=== PATIENT | male | born 1960 | race Two or more races ===

== ENCOUNTER 2017-04-09 16:27 | Emergency (ER) | payer BC, OTHER ==
[~2017-04-09] VITALS: Ht 177.8 cm; Wt 95.2 kg
[2017-04-09 16:28] VITALS: BP 135/96
[2017-04-09] MEDS ORDERED: LISI2.5T PO (16:45)
[2017-04-09] MEDS ORDERED: METF500T4 PO (16:45)
[2017-04-09] MEDS ORDERED: ATOR10TA9 PO (16:46)
[2017-04-09] MEDS ORDERED: OMEG1CAP23 PO (16:47)
== END 2017-04-09 19:40 | disposition home or self-care (01) ==
LOC: ED 17:00
DX: S92.351A Displaced fracture of fifth metatarsal bone, right foot, initial encounter for closed fracture (principal); X50.1XXA Overexertion from prolonged static or awkward postures, initial encounter; Y93.01 Activity, walking, marching and hiking; Y92.488 Other paved roadways as the place of occurrence of the external cause; Y99.8 Other external cause status
CPT/HCPCS: 29515; 99284